=== PATIENT | male | born 1935 | race Caucasian/White ===

== ENCOUNTER → 2017-08-16 | Outpatient (CLI) | payer OTHER ==
[~2017-08-16] MED LIST: ALUMCHW2 PO; ASPI-319 PO; CETI10TA84 PO; ENAL1TAB31 PO; GLC/500 PO; ISOS-11 PO; LPR25 PO; NITR0.4S UT; ROSU20TA PO
[2017-08-16 13:42] LABS: BASO % 0.3 %; BASO ABS # 0.02 K/uL (0-0.2); EOS % 2.7 %; EOS ABS # 0.19 K/uL (0-0.5); HEMATOCRIT 39.5 % (42-52); HEMOGLOBIN 13.3 g/dL (14.0-18.0); HEMOGLOBIN A1C 6.8 % (4.5-5.6); IG# 0.01 K/uL (0.00-0.02); LYMPH % 39.3 %; LYMPH ABS # 2.79 K/uL (1.2-3.4); MEAN CELL VOLUME 92.9 fL (80-100); MEAN CORPUSCULAR HEMOGLOBIN 31.3 pg (25-34); MEAN CORPUSCULAR HGB CONC 33.7 g/dl (32-36); MEAN PLATELET VOLUME 10.3 fL (7.4-10.4); MONO % 11.4 %; MONO ABS # 0.81 K/uL (0.11-0.59); NEUT % 46.2 %; NEUT ABS # 3.28 K/uL (1.4-6.5); PLATELET COUNT 237 K/uL (130-400); RED CELL DISTRIBUTION WIDTH CV 13.8 % (11.5-14.5); RED CELL DISTRIBUTION WIDTH SD 46.8 fL (36.4-46.3)
[2017-08-16 13:48] LABS: ALBUMIN 3.7 gm/dl (3.4-5.0); ALT/SGPT 29 U/L (12-78); AST/SGOT 16 U/L (15-37); BLOOD UREA NITROGEN 13 mg/dl (7-18); CALCIUM 8.8 mg/dl (8.5-10.1); CARBON DIOXIDE 28 mmol/L (21-32); CHOLESTEROL 128 mg/dl (0-200); CREATININE 0.76 mg/dl (0.60-1.40); GLUCOSE 143 mg/dl (70-99); POTASSIUM 4.4 mmol/L (3.5-5.1); SODIUM 138 mmol/L (136-145)
[2017-08-16 13:50] LABS: ALKALINE PHOSPHATASE 55 U/L (45-117); LDL CHOLESTEROL CALCULATED 44 mg/dl; TOTAL PROTEIN 7.2 gm/dl (6.4-8.2)
== END | disposition home or self-care (01) ==
LOC: C.LABBC 11:06
PROVIDERS: ATTEND Internal Medicine
DX: E11.9 Type 2 diabetes mellitus without complications (principal)